=== PATIENT | female | born 1985 | race African-American/Black ===

== ENCOUNTER 2024-05-15 16:30 | Emergency (ER) | payer OTHER, SELFPAY ==
[2024-05-15 16:45] VITALS: BP 136/91; PULSE 79; RESP 16; TEMP 36.6; O2SAT 100
[2024-05-15 17:30] LABS: BEDSIDEPREGUCG Negative (Negative)
[2024-05-15 17:47] LABS: Basophils Absolute Auto 0.1 K/mm3 (0.0-0.1); Eosinophils Absolute Auto 0.3 K/mm3 (0-0.3); Eosinophils Percent Auto 3.7 % (0-4.4); Hematocrit 34.7 % (37.0-47.0); Hemoglobin 11.5 g/dL (12.0-15.0); Immature Granulocyte Absolute 0.01 K/mm3 (0.00-0.031); Immature Granulocyte Percent A 0.1 % (0-0.5); Lymphocytes Absolute Auto 3.21 K/mm3 (0.9-3.2); Lymphocytes Percent Auto 43.8 % (18.3-44.2); Mean Corpuscular HGB Conc 33.1 g/dl (32-36); Mean Corpuscular Volume 99.4 fl (80-100); Mean Platelet Volume 11.2 fl (7.4-10.4); Monocytes Absolute Auto 0.7 K/mm3 (0.1-0.6); Neutrophils Percent Auto 41.4 % (45.5-73.1); Platelet Count Result 287 k/mm3 (150-375); Red Blood Count 3.49 M/mm3 (4.2-5.4); Red Cell Distribution Width 13.2 % (11.5-14.5); White Blood Count 7.3 K/mm3 (4.5-10.0)
[2024-05-15 17:57] LABS: Acetaminophen < 10 ug/mL (10-30); Ethanol < 10 mg/dL (<10); Salicylate < 1.0 mg/dL (2-20)
[2024-05-15 17:58] LABS: Alanine Aminotransferase 11 U/L (6-35); Albumin Level 4.4 g/dL (3.5-5.1); Alkaline Phosphatase 65 U/L (38-126); Anion Gap 11 mmol/L (4-12); Aspartate Amino Transferase 21 U/L (14-36); Bilirubin,Total < 0.1 mg/dL (0.2-1.3); Blood Urea Nitrogen 8 mg/dL (7-17); Calcium 9.4 mg/dL (8.4-10.2); Carbon Dioxide 27 mmol/L (22-30); Chloride 101 mmol/L (98-107); Estimated CRCL calculation 130 ml/min; Estimated Glomerular Filt Rate > 60; Glucose 130 mg/dL (65-110); Potassium 3.9 mmol/L (3.4-5.0); Sodium 139 mmol/L (137-145)
[2024-05-15 18:00] VITALS: BP 138/80; PULSE 82; RESP 16; TEMP 36.6; O2SAT 100
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
[2024-05-15 18:04] LABS: Add Urine Microscopic? YES; Appearance Urine Clear (Clear); Bacteria Urine None Seen /hpf; Bilirubin Urine Negative (Negative); Blood Urine Negative (Negative); Color Urine Yellow (Yellow); Glucose Urine UA Negative (Negative); Ketones Urine Negative (Negative); Leukocyte Esterase Ur Trace LEU/UL (Negative); Need Manual Microscopic Reviewed; Nitrate Urine Negative (Negative); Non Pathogenic Casts 0-2; Protein Urine Negative (Negative); RBC Urine 0-2 /hpf (0-2); Specific Grav Ur 1.003 (1.001-1.035); Squamous Epithelial Cell Urine None Seen /hpf (Few); Urobilinogen Urine 0.2 mg/dL (<2.0); WBC Urine 0-5 /hpf (0-3); pH Urine 7.5 (5.0-9.0)
[2024-05-15 18:05] LABS: Amphetamine Screen Urine Negative (Negative); Barbiturate Screen Urine Negative (Negative); Benzodiazepines Screen Urine Negative (Negative); Cannabinoid Screen Urine Negative (Negative); Cocaine Screen Urine Negative (Negative); Methadone Screen Urine Negative (Negative); Opiate Screen Urine Negative (Negative); Phencyclidine Screen Urine Negative (Negative)
[2024-05-15 18:49] LABS: Thyroid Stimulating Hormone Reflex 0.828 uIU/mL (0.465-4.68)
[2024-05-15 19:09] VITALS: BP 136/78; PULSE 82; RESP 18; TEMP 36.6; O2SAT 100
[2024-05-15 19:19] LABS: Influenza A QL RT-PCR Negative (Negative); Influenza B QL RT-PCR Negative (Negative); RSV RNA, RT-PCR Negative (Negative); SARS-CoV-2 RNA PCR Negative (Negative)
== END 2024-05-15 23:00 | disposition home or self-care (01) ==
PROVIDERS: Emergency Provider Emergency Medicine
DX: F32.A Depression, unspecified (principal); Z20.822 Contact with and (suspected) exposure to COVID-19
CPT/HCPCS: 36415; 80053; 80307; 81001; 81025; 84443; 85025; 87637; 99284

== ENCOUNTER 2024-07-12 13:58 | Emergency (ER) | payer OTHER, SELFPAY ==
[2024-07-12 14:03] VITALS: BP 123/95; PULSE 97; RESP 18; TEMP 37.1; O2SAT 100
--- NOTE | 2024-07-12 14:43 | PC.NURSE ---
1424- [facility] notified spoke with Leyla Casas from [facility] returned call and will be at hospital in 45 minutes. 1432- RN notified [facility] spoke with Jania who will be sending a business services representative to see pt
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
--- NOTE | 2024-07-12 16:36 | PC.NURSE ---
Care Coordination notified of needing assistance with safe discharge plans
--- NOTE | 2024-07-12 16:37 | PC.NURSE ---
Pt given dinner tray
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
[2024-07-12 18:47] LABS: BEDSIDEPREGUCG Negative (Negative)
[2024-07-12] MEDS: cefTRIAXone 1 GM VIAL 0.5 GM IM (19:22)
[2024-07-12 19:28] VITALS: BP 120/88; PULSE 90; RESP 18; TEMP 36.9; O2SAT 100
--- NOTE | 2024-07-12 19:30 | PC.NURSE ---
pt assessment unchanged. Voices understanding of precautions to be taken to at [place]. [place] staff informed of RX & take as directed. Follow up with PMD
[2024-07-12 19:56] LABS: Trichomonas Vag PCR NOT DETECTED (NOT DETECTE)
[2024-07-12 20:20] LABS: Chlamydia trachomatis NOT DETECTED (NOT DETECTE); Neisseria gonorrhoeae PCR NOT DETECTED (NOT DETECTE)
== END 2024-07-12 19:32 ==
PROVIDERS: Emergency Provider Emergency Medicine
DX: T74.21XA Adult sexual abuse, confirmed, initial encounter (principal); Y07.59 Other non-family member, perpetrator of maltreatment and neglect; F25.9 Schizoaffective disorder, unspecified
CPT/HCPCS: 81025; 87491; 87591; 87661; 96372; 99284; J0696